=== PATIENT | female | born 1960 ===

== ENCOUNTER 2020-09-25 10:56 | Day surgery (SDC) | payer OTHER ==
[~2020-09-25 10:56] MED LIST: Lactated Ringers 1,000 ML IV SCH; Lidocaine 1%/Sod Bicarbonate in NS 8.4% 1 ML Syringe IDERM PRN; Sodium Chloride 0.9% 10 ML Syringe FLUSH PRN
[2020-09-25] MEDS ORDERED: Triamcinolone Acetonide 40 MG/ML 1 ML SDV ONE ×2 (10:59→11:00)
[2020-09-25] MEDS ORDERED: Lidocaine 1% 30 ML SDV ONE (11:00)
[2020-09-25] MEDS ORDERED: Bupivacaine 0.25% 10 ML SDV ONE (11:00)
--- NOTE | 2020-09-25 12:13 | PCM.PREANE ---
Preanesthetic Assessment - Procedure Proposed Procedure: Carpal tunnel Release - Anesthesia/Transfusion/Family Hx Anesthesia History: Prior Anesthesia Without Reaction Family History of Anesthesia Reaction: No Transfusion History: No Prior Transfusion(s) - Review of Systems General: No Symptoms Pulmonary: Cough (smokers) Cardiovascular: No Symptoms Gastrointestinal: No Symptoms Neurological: Numbness (hands) Other: Reports: Diabetes, Thyroid Problems (hypothyroid) - Physical Assessment NPO Status Date: 09/24/20 NPO Status Time: 00:00 Vital Signs: Last Vital Signs Temp 37.2 C 09/25/20 11:05 Pulse 84 09/25/20 11:05 Resp 20 09/25/20 11:05 BP 128/63 09/25/20 11:05 Pulse Ox 97 09/25/20 11:05 Height: 1.6 m Weight: 88.451 kg ASA Class: 3 Mental Status: Alert & Oriented x3 Airway Class: Mallampati = 1 Dentition: Reports: Caries Thyro-Mental Finger Breadths: 3 Mouth Opening Finger Breadths: 3 ROM/Head Extension: Full Lungs: Clear to Auscultation, Normal Respiratory Effort Cardiovascular: Regular Rate, Regular Rhythm - Lab Values: Laboratory Last Values POC Glucose 94 mg/dL (70-105) 09/25/20 11:11 SARS-CoV-2 RNA (CLAU) Negative (NEGATIVE) 09/25/20 11:04 MRSA (PCR) Negative 09/19/20 14:55 - Imaging/EKG Impressions: EKG SR Rate 67 - Allergies Allergies/Adverse Reactions: Allergies Allergy/AdvReac Type Severity Reaction Status Date / Time codeine Allergy Nausea and Verified 09/25/20 11:54 Vomiting Penicillins Allergy Airway Verified 09/25/20 11:54 Tightness - Blood Blood Available: No Product(s) Available: None - Anesthesia Plan Pre-Op Medication Ordered: None - Acknowledgements Anesthesia Type Planned: MAC Pt an Appropriate Candidate for the Planned Anesthesia: Yes Alternatives and Risks of Anesthesia Discussed w Pt/Guardian: Yes Pt/Guardian Understands and Agrees with Anesthesia Plan: Yes PreAnesthesia Questionnaire HEENT History: Reports: Allergic Rhinitis Cardiovascular History: Reports: High Cholesterol, Hypertension, Other (See Below) Other Cardiovascular History: leg edema, elevated BNP Respiratory History: Reports: COPD Gastrointestinal History: Reports: None Genitourinary History: Reports: None DISK RECORDIST History: Reports: None Musculoskeletal History: Reports: Arthritis, Other (See Below) Other Musculoskeletal History: body aches, joint pain Neurological History: Reports: Migraines Psychiatric History: Reports: Anxiety, Depression Endocrine/Metabolic History: Reports: Diabetes, Type II, Hypothyroidism, Obesity/BMI 30+, Vitamin D Deficiency Hematologic History: Reports: None Immunologic History: Reports: None Oncologic (Cancer) History: Reports: None Dermatologic History: Reports: Other (See Below) Other Dermatologic History: facial surgery - Infectious Disease History Infectious Disease History: Reports: None - Past Surgical History Head Surgeries/Procedures: Reports: None HEENT Surgical History: Reports: None Cardiovascular Surgical History: Reports: None Respiratory Surgical History: Reports: None GI Surgical History: Reports: None Female Surgical History: Reports: Section Male Surgical History: Reports: None Endocrine Surgical History: Reports: None Neurological Surgical History: Reports: None Musculoskeletal Surgical History: Reports: None - SUBSTANCE USE Tobacco Use Status *Q: Current Every Day Tobacco User Tobacco Use Within Last Twelve Months: Cigarettes Second Hand Smoke Exposure: Yes Days Per Week of Alcohol Use: 0 Number of Drinks Per Day: 0 Total Drinks Per Week: 0 Recreational Drug Use History: No - HOME MEDS Home Medications: Home Meds ALPRAZolam [Xanax] 0.5 mg PO DAILY PRN 09/24/20 [History] Acetaminophen [Tylenol Arthritis Pain] 650 mg PO QID PRN 09/24/20 [History] Acetaminophen/HYDROcodone [Hitchcock 325-5 MG] 1 - 2 tab PO Q6H PRN #6 09/24/20 [Rx] Amitriptyline [Elavil] 10 mg PO BEDTIME 09/24/20 [History] Aspirin 81 mg PO DAILY 09/24/20 [History] Budesonide/Formoterol Fumarate [Symbicort 160-4.5 Mcg Inhaler] 2 puff INH BID 09/24/20 [History] Cholecalciferol (Vitamin D3) [Vitamin D3] 2,000 unit PO DAILY 09/24/20 [History] Ezetimibe [Zetia] 10 mg PO DAILY 09/24/20 [History] Furosemide [Lasix] 20 mg PO DAILY 09/24/20 [History] Gabapentin [Neurontin] 300 mg PO BID 09/24/20 [History] Levothyroxine 25 mcg PO DAILY 09/24/20 [History] Losartan [Cozaar] 50 mg PO DAILY 09/24/20 [History] Potassium Chloride 20 meq PO DAILY 09/24/20 [History] atorvaSTATin Calcium [Atorvastatin Calcium] 40 mg PO BEDTIME 09/24/20 [History] metFORMIN [Glucophage] 500 mg PO BID 09/24/20 [History] - CURRENT (IN HOUSE) MEDS Current Meds: Current Medications Lactated Ringer's (Ringers, Lactated) 1,000 mls @ 125 mls/hr IV ASDIRECTED KIZZY Stop: 09/25/20 23:00 Last Admin: 09/25/20 11:30 Dose: 125 mls/hr Documented by: Lidocaine/Sodium Bicarbonate (Buffered Lidocaine 1% In Ns 8.4%) 0.25 ml IDERM ONETIME PRN PRN Reason: Prior to IV Start Stop: 09/25/20 18:00 Last Admin: 09/25/20 11:30 Dose: 0.25 ml Documented by: Sodium Chloride (Saline Flush) 10 ml FLUSH ASDIRECTED PRN PRN Reason: Keep Vein Open Stop: 09/25/20 18:00 Discontinued Medications Bupivacaine HCl (Sensorcaine-Mpf 0.25%) Confirm Administered Dose 20 ml .ROUTE .STK-MED ONE Stop: 09/25/20 11:01 Lidocaine HCl (Xylocaine-Mpf 1%) Confirm Administered Dose 30 ml .ROUTE .STK-MED ONE Stop: 09/25/20 11:01 Triamcinolone Acetonide (Kenalog-40) Confirm Administered Dose 40 mg .ROUTE .STK-MED ONE Stop: 09/25/20 11:00 Triamcinolone Acetonide (Kenalog-40) Confirm Administered Dose 40 mg .ROUTE .STK-MED ONE Stop: 09/25/20 11:01
[2020-09-25] MEDS ORDERED: fentaNYL 100 MCG/2 ML SDV ONE (12:27)
[2020-09-25] MEDS ORDERED: Ondansetron 4 MG/2 ML SDV ONE (12:27)
[2020-09-25] MEDS ORDERED: Midazolam 1 MG/ML 2 ML SDV ONE (12:27)
[2020-09-25] MEDS ORDERED: Lidocaine 1% 4 ML ONE (12:28)
[2020-09-25] MEDS ORDERED: Propofol 200 MG/20 ML SDV ONE ×2 (12:28→12:54)
[2020-09-25] MEDS ORDERED: Lactated Ringers 1,000 ML ONE (12:56)
[2020-09-25] MEDS ORDERED: Clindamycin Phosphate in D5W 900 MG in Premix Bag 1 BAG IV ONE ×2 (13:00)
--- NOTE | 2020-09-25 13:11 | PCM48HPAN ---
Post Anesthesia Note - EVALUATION WITHIN 48HRS OF ANESTHETIC Vital Signs in Normal Range: Yes Patient Participated in Evaluation: Yes Respiratory Function Stable: Yes Airway Patent: Yes Cardiovascular Function Stable: Yes Hydration Status Stable: Yes Pain Control Satisfactory: Yes Nausea and Vomiting Control Satisfactory: Yes Mental Status Recovered: Yes Vital Signs: Last Vital Signs Temp 37.2 C 09/25/20 11:05 Pulse 84 09/25/20 11:05 Resp 20 09/25/20 11:05 BP 128/63 09/25/20 11:05 Pulse Ox 97 09/25/20 11:05 - COMMENTS/OBSERVATIONS Free Text/Narrative:: no anesthesia complications noted
--- NOTE | 2020-10-06 17:01 | PCM.OPNOTE ---
- General Post-Op/Procedure Note Date of Surgery/Procedure: 10/23/20 Operative Procedure(s): left carpal tunnel release with right carpal tunnel injection Pre Op Diagnosis: bilateral median nerve compression neuropathy Post-Op Diagnosis: Same Anesthesia Technique: Local, MAC Primary Surgeon: Sp Balderas Anesthesia Provider: Cristian Gutierrez Wound Care Specialist: Aleah Fountain EBL in mLs: 5 Complications: None Condition: Good
--- NOTE | 2020-10-06 17:40 | OR ---
DATE OF OPERATION: 09/25/2020 SURGEON: Sp Balderas MD OPERATION PERFORMED: Left carpal tunnel release with right carpal tunnel injection. PREOPERATIVE DIAGNOSIS: Bilateral median nerve compression neuropathy. POSTOPERATIVE DIAGNOSIS: Bilateral median nerve compression neuropathy. ANESTHESIA: Local MAC. ANESTHESIA PROVIDER: Cristian Gutierrez CRNA. EYEGLASS FITTER: Aleah Fountain PA-C. ESTIMATED BLOOD LOSS: less than 5 mL. COMPLICATIONS: None. CONDITION: Stable. DESCRIPTION OF PROCEDURE: The patient was identified in the preop holding area. Proper site was marked and identified by the surgeon. The patient was taken back to the operating theater where after adequate anesthesia, the patient's left upper extremity was sterilely prepped and draped in the usual sterile fashion. OR time-out was performed. The patient did not receive antibiotics and it is not indicated for soft tissue hand procedure. At this time, the left upper extremity was exsanguinated and an Esmarch was used as a tourniquet on the forearm. At this time, using 1% lidocaine without epinephrine and 0.25% Marcaine without epinephrine, the palmar cutaneous branch of the median nerve was anesthetized and then the incisional site was anesthetized using Villa cardinal line and ulnar border of the fourth digit as reference. Once this had set up, an incision was made. Blunt dissection was taken down to the palmar cutaneous fascia. Palmar cutaneous fascia was incised with a Hopkins blade. At this time, the transverse carpal ligament was identified. A small rent was made in the transverse carpal ligament with a Hopkins blade under direct visualization. Resection of the transverse carpal ligament was done distally using tenotomy scissors making sure to stop short of the palmar arch. At this time, attention was turned proximally after it was found to be adequately released. Using the tenotomy scissors keeping the tips ulnar to protect the palmar cutaneous branch of the median nerve, the superficial forearm fascia as well as the transverse carpal ligament were resected proximally. It was found to be adequate release both proximally and distally. At this time, adequate saline was irrigated through the wound. 4-0 nylon sutures were used closure of the skin. After this was completed, under sterile technique, 1 mL 40 mg Kenalog and 2 mL of 0.25% Marcaine were injected to the right carpal tunnel. The patient tolerated all procedures well. The patient was placed in a sterile soft dressing and sent to PACU in stable condition. MMODAL /[id number]
== END 2020-09-25 13:48 | disposition home or self-care (01) ==
LOC: JD.SDS 10:56
PROVIDERS: ATTEND Orthopaedic Surgery
DX: G56.03 Carpal tunnel syndrome, bilateral upper limbs (principal); I10 Essential (primary) hypertension; J44.9 Chronic obstructive pulmonary disease, unspecified; E03.9 Hypothyroidism, unspecified; E78.00 Pure hypercholesterolemia, unspecified; E11.9 Type 2 diabetes mellitus without complications; E66.9 Obesity, unspecified; Z68.32 Body mass index [BMI] 32.0-32.9, adult; G47.30 Sleep apnea, unspecified; F17.210 Nicotine dependence, cigarettes, uncomplicated; Z01.812 Encounter for preprocedural laboratory examination; Z20.822 Contact with and (suspected) exposure to COVID-19; Z88.0 Allergy status to penicillin; Z88.6 Allergy status to analgesic agent; Z79.84 Long term (current) use of oral hypoglycemic drugs; Z79.890 Hormone replacement therapy; Z79.899 Other long term (current) drug therapy
CPT/HCPCS: 20526; 64721; 82962; 87635; 87641; J2250; J2405; J2704; J3010; J3301; J3490; J7120; 01810; U0002